=== PATIENT | male | born 1990 | race African-American/Black ===

== ENCOUNTER 2019-03-21 13:44 | Emergency (ER) | payer MEDICAID ==
[~2019-03-21] VITALS: Ht 188 cm; Wt 81.8 kg
[2019-03-21 16:02] VITALS: BP 128/86
== END 2019-03-21 17:38 | disposition home or self-care (01) ==
LOC: EMS 13:46
DX: J45.909 Unspecified asthma, uncomplicated (principal); F12.90 Cannabis use, unspecified, uncomplicated

== ENCOUNTER 2020-05-19 19:35 | Emergency (ER) | payer MEDICAID ==
[~2020-05-19] VITALS: Ht 193 cm; Wt 92.7 kg
[2020-05-19 20:15] VITALS: BP 110/61
[2020-05-19] MEDS ORDERED: LIDOCAINE 5% TRANSDERMAL PATCH TD ONE (21:30)
[2020-05-19] MEDS ORDERED: KETOROLAC TROMETHAMINE 60 MG/2 ML VIAL IM ONE (21:30)
== END 2020-05-19 22:10 | disposition left against medical advice (07) ==
LOC: EMS 19:35
DX: L02.31 Cutaneous abscess of buttock (principal); M54.5 Low back pain; J45.909 Unspecified asthma, uncomplicated
CPT/HCPCS: 99281; J1885

== ENCOUNTER 2022-07-16 19:04 | Emergency (ER) | payer MEDICAID ==
[~2022-07-16] VITALS: Ht 188 cm; Wt 90.0 kg
[2022-07-16 20:06] VITALS: BP 136/82
[2022-07-16] MEDS ORDERED: LIDOCAINE 1% 10 ML VIAL SQ ONE (22:15)
[2022-07-16] MEDS ORDERED: SULFAMETHOX/TRIMETH DS 800-160 MG/TABLET PO ONE (23:30)
== END 2022-07-16 23:23 | disposition home or self-care (01) ==
LOC: EMS 19:04
DX: L02.01 Cutaneous abscess of face (principal); J45.909 Unspecified asthma, uncomplicated; F12.90 Cannabis use, unspecified, uncomplicated
CPT/HCPCS: 99284; 10061; 87070; J3490

== ENCOUNTER 2023-11-24 09:08 | Emergency (ER) | payer SELFPAY ==
[~2023-11-24] VITALS: Ht 177.8 cm; Wt 86.4 kg
[2023-11-24 09:24] VITALS: TEMP 97.9
[2023-11-24] MEDS: HYDROGEN PEROXIDE 118 ML SOLUTION TP ONE (12:05)
[2023-11-24] MEDS: CARBAMIDE PEROXIDE 6.5% 15 ML OTIC SOLUTION AD ONE (12:06)
[2023-11-24 13:29] VITALS: BP 118/67; PULSE 72; RESP 18; O2SAT 99
== END 2023-11-24 13:36 | disposition home or self-care (01) ==
LOC: EMS 09:08
DX: H61.21 Impacted cerumen, right ear (principal); J45.909 Unspecified asthma, uncomplicated; F12.90 Cannabis use, unspecified, uncomplicated
CPT/HCPCS: 69209; 99282; Z7502; Z7610